=== PATIENT | male | born 1960 | race Caucasian/White ===

== ENCOUNTER 2021-06-26 07:10 | Day surgery (SDC) | payer OTHER ==
[~2021-06-26] VITALS: Ht 182.9 cm; Wt 103.3 kg
[~2021-06-26 07:10] MED LIST: ASPI-1475 PO; CEPH-585 PO; HYDR-3972 PO; albuterol 2.5 MG/3 ML nebule NEB PRN; bacitracin 15gm ointment TP ONE; cefazolin/dext.iso 2gm/100ml IV ONE; famotidine 20mg tablet PO ONE; ringers solution, lacted 1,000 ML IV SCH
[2021-06-26 08:00] VITALS: BP 155/100
[2021-06-26] MEDS ORDERED: vancomycin/NS 1 GM ADD-VANTAGE 250 ML X 1 DOSE IV ONE (08:35)
[2021-06-26 09:00] LABS: BASOPHILS % (AUTO) 0.7 % (0-1); EOSINOPHILS # (AUTO) 0.3 X10'3 (0-0.9); EOSINOPHILS % (AUTO) 4.3 % (0-6); LYMPHOCYTES # (AUTO) 1.8 X10'3 (1.1-4.8); LYMPHOCYTES % (AUTO) 29.8 % (21-51); MEAN CORPUSCULAR HEMOGLOBIN 33.4 PG (27.0-31.0); MEAN CORPUSCULAR HGB CONC 35.7 g/dL (33.0-36.5); MEAN CORPUSCULAR VOLUME 93.7 FL (78-98); MONOCYTES # (AUTO) 0.7 X10'3 (0-0.9); MONOCYTES % (AUTO) 11.2 % (2-12); NEUTROPHILS # (AUTO) 3.2 X10'3 (1.8-7.7); PRE OP HEMATOCRIT 42.3 % (42.0-52.0); PRE OP HEMOGLOBIN 15.1 g/dL (14.0-17.9); PRE OP PLATELET COUNT 228 X10'3 (140-440); RED BLOOD COUNT 4.51 X10'6 (4.70-6.10); RED CELL DISTRIBUTION WIDTH 14.2 % (11.5-14.5)
[2021-06-26 09:24] LABS: ALANINE AMINOTRANSFERASE 34 U/L (12-78); ALBUMIN 3.8 G/DL (3.4-5.0); ALKALINE PHOSPHATASE 87 IU/L (46-116); ANION GAP 9 (8-16); ASPARTATE AMINO TRANSFERASE 19 U/L (10-37); BILIRUBIN,TOTAL 0.3 MG/DL (0.1-1.0); BLOOD UREA NITROGEN 13 MG/DL (7-18); BUN/CREATININE RATIO 11.3 (5.4-32.0); CALCIUM 8.8 MG/DL (8.5-10.1); CHLORIDE 105 MMOL/L (99-107); CREATININE 1.15 MG/DL (0.60-1.10); GLUCOSE 114 MG/DL (70-104); POTASSIUM 4.1 MMOL/L (3.5-5.1); SODIUM 141 MMOL/L (135-145); TOTAL CARBON DIOXIDE 26.8 MMOL/L (24-32); TOTAL PROTEIN 7.5 G/DL (6.4-8.2); eGFR 65 ML/MIN
[2021-06-26 09:45] LABS: CLARITY,URINE CLEAR (Clear); COLOR,URINE YELLOW (Yellow); GLUCOSE, URINE NEGATIVE (Neg); KETONES,URINE NEGATIVE (Neg); LEUKOCYTE ESTERASE ,URINE NEGATIVE (Neg); NITRITES, URINE NEGATIVE (Neg); OCCULT BLOOD,URINE NEGATIVE (Neg); PROTEIN,URINE NEGATIVE (Neg); UA COLLECTION TYPE NON-SPECIFIED; UROBILINOGEN,URINE 0.2 E.U/dL (0.2-1.0)
[2021-06-26] MEDS ORDERED: fentaNYL/PF 50MCG/1 ML 2ML syringe ONE (11:03)
[2021-06-26] MEDS ORDERED: propofol inj 20 ML IV ONE (11:03)
[2021-06-26] MEDS ORDERED: midazolam 1 mg/ML 2ml injection ONE (11:03)
[2021-06-26] MEDS ORDERED: ROPIVAcaine 0.5% (5mg/ml) 30ml vial ONE (11:05)
[2021-06-26] MEDS ORDERED: sevoflurane 250ml liquid IH ONE (11:08)
[2021-06-26 13:44] VITALS: BP 135/84
--- NOTE | 2021-06-26 13:44 | NUR ---
ASSUME CARE PT AROUSABLE TO NAME VSS NO DISTRESS. FM IN PLACE SAT 100%, DENIES PAIN SOFT DRESSING TO RIGHT FOOT CDI +CMS TO THE FOOT. IV INT LEFT HAND 20G INTACT. CONT TO MONITOR Addendum: 06/26/21 at 1424 by Gina Oleary RN Amended: Links added.
[2021-06-26 13:54] VITALS: BP 134/91
[2021-06-26 14:04] VITALS: BP 118/88
[2021-06-26 14:14] VITALS: BP 120/80
[2021-06-26 14:24] VITALS: BP 117/90
--- NOTE | 2021-06-26 14:31 | NUR ---
PT MORE AWAKE SITTING UP IN BED VSS NO DISTRESS DENIES PAIN [place] POS MEETS CRITERIA TO GO HOME, RIDE CALLED DC INSTR GIVEN NO ?S OR CONCERNS. Addendum: 06/26/21 at 1432 by Gina Oleary RN Amended: Links added.
--- NOTE | 2021-06-26 14:50 | NUR ---
PT WAITING FOR RIDE. Addendum: 06/26/21 at 1450 by Gina Oleary RN Amended: Links added.
== END 2021-06-26 14:44 | disposition home or self-care (01) ==
LOC: PAS 07:10
PROVIDERS: ATTEND Podiatrist Foot & Ankle Surgery
DX: S82.891A Other fracture of right lower leg, initial encounter for closed fracture (principal); S93.439A Sprain of tibiofibular ligament of unspecified ankle, initial encounter; M25.571 Pain in right ankle and joints of right foot
CPT/HCPCS: 27695; 27792; 36415; 73600; 76000; 80053; 81003; 82948; 85025; 87635; 93005; A6223; C1713; C9803; J2250; J2704; J3010; J3370; Z7506; Z7508; Z7512; A4215; A4618; A6253; A6449; A7000; J2795; J7120